=== PATIENT | female | born 1955 | race Caucasian/White ===

== ENCOUNTER 2020-12-27 18:14 | Observation (INO) | payer MEDICARE ==
[2020-12-27] MEDS ORDERED: Acetaminophen 325 MG TAB PO PRN (21:32)
[2020-12-27] MEDS ORDERED: Senokot S 8.6-50 MG TAB PO PRN (21:32)
[2020-12-27] MEDS ORDERED: Guaifenesin DM 100-10/5 ML UDCUP PO PRN (21:32)
[2020-12-27] MEDS ORDERED: HYDROcodone/Acetaminophen 5/325 mg Tablet PO PRN (21:32)
[2020-12-27] MEDS ORDERED: Ondansetron PF 4 MG/2 ML Vial IVP PRN (21:32)
[2020-12-27] MEDS ORDERED: HumaLOG 300 UNITS/3 ML VIAL SC PRN (21:32)
[2020-12-27] MEDS ORDERED: Zolpidem Tartrate 5 MG TAB PO PRN (21:32)
[2020-12-27] MEDS ORDERED: Dextrose 50% Abboject 50 ML SYRINGE SLOW IVP PRN (21:32)
[2020-12-27] MEDS ORDERED: Calcium Carbonate 500 MG ChewTAB PO PRN (21:32)
[2020-12-27] MEDS ORDERED: Dextrose 5% in Water 1,000 ML IV PRN (21:32)
[2020-12-27] MEDS ORDERED: Nitroglycerin 0.4 MG TAB (25 Tab Bottle) SL PRN (21:36)
[2020-12-28 00:20] VITALS: BMI 36.6
[2020-12-28] MEDS: Metoprolol Tartrate 25 MG TAB PO SCH ×2 (00:49→14:40)
[2020-12-28 04:46] LABS: #Basophils 0.1 10x3/uL (0.0-0.2); #Eosinphils 0.3 10x3/uL (0.0-0.5); #Monocytes 0.6 10x3/uL (0.0-1.1); #Neutrophils 3.2 10x3/uL (1.5-8.4); %Basophils 0.7 % (0.0-2.0); %Eosinophils 4.1 % (0.0-6.0); %Lymphocytes 42.1 % (18.0-47.0); %Monocytes 8.4 % (0.0-10.0); %Neutrophils 44.6 % (40.0-75.0); Hemoglobin 14.4 g/dL (12.0-15.5); Mean Corpuscular HGB CONC 33.6 g/dL (32.0-36.0); Mean Corpuscular Hemoglobin 30.1 pg (27.0-33.0); Mean Corpuscular Volume 89.7 fl (81.6-98.3); Mean Platelet Volume 9.2 fl (7.4-10.4); Platelet Count 271 10x3/uL (150-450); RBC Distribution Width 12.4 % (11.5-14.5); Red Blood Cell (RBC) Count 4.78 10x6/uL (3.90-5.03); White Blood Cell (WBC) Count 7.1 10x3/uL (3.5-10.5)
[2020-12-28 04:56] LABS: Lactic Acid 0.9 mmol/L (0.5-2.2)
[2020-12-28 05:00] LABS: Anion Gap 13 mmol/L (10-20); BUN (Urea Nitrogen) 11 mg/dL (9.8-20.1); CK (CPK) 41 U/L (29-168); Calc. Creatinine Clearance 130 mL/min (70-130); Carbon Dioxide 22 mmol/L (23-31); Cardiac Risk 5.1 (Less than 4.5); Chloride 108 mmol/L (98-107); Cholesterol 173 mg/dl (< 200 Desired); Glucose 135 mg/dL (80-115); HDL Cholesterol 34 mg/dL (>60 Neg Risk); LDL Cholesterol, Calculated 125 mg/dL; Sodium 139 mmol/L (136-145); Triglycerides 71 mg/dL (Less than 150)
[2020-12-28] MEDS ORDERED: Lactated Ringer's 1,000 ML IV SCH ×2 (05:15→06:00)
[2020-12-28] MEDS ORDERED: Enoxaparin Sodium 40 MG/0.4 ML SYRINGE SC SCH (09:00)
[2020-12-28] MEDS ORDERED: Aspirin 81 mg Enteric Coated Tablet PO SCH (09:00)
[2020-12-28] MEDS ORDERED: Lisinopril 2.5 MG TAB PO SCH (09:00)
[2020-12-28] MEDS ORDERED: Citalopram 20 MG TAB PO SCH (09:00)
[2020-12-28 11:43] LABS: Hemoglobin A1c 8.2 % (4.0-6.0)
[2020-12-28 15:08] LABS: Bilirubin Neg (Negative); Blood, Urine Negative (Negative); Clarity Clear (Clear); Glucose, Urine (Dipstick) Normal (Negative); Ketone, Urine Negative (Negative); Leukocyte Negative (Negative); Nitrite Negative (Negative); Protein, Urine (Dipstick) Negative (Neg-Trace); Specific Gravity, Urine 1.015 (1.002-1.036); Urobilinogen Normal mg/dL (Less than 2)
[2020-12-28 15:24] LABS: Bacteria/HPF None Seen HPF (None Seen); RBC/HPF 0-3 HPF (0-3); Squamous Epithelial 0-3 HPF (0-3); WBC/HPF None Seen HPF (0-3)
[2020-12-28 16:13] VITALS: BP 114/68; TEMP 97.8
[2020-12-28 18:47] LABS: SARS-CoV-2 PCR by NAA Not Detected (NotDetected)
[2020-12-28] MEDS ORDERED: Atorvastatin Calcium 20 MG TAB PO SCH (21:00)
== END 2020-12-28 18:20 | disposition home or self-care (01) ==
LOC: CSHERS 18:14 → CSHTELE 21:32 → UNDOADMOB 23:58
PROVIDERS: ADMIT Student in an Organized Health Care Education/Training Program; ATTEND Physician Assistant Medical
DX: R07.9 Chest pain, unspecified (principal); R03.0 Elevated blood-pressure reading, without diagnosis of hypertension; E78.5 Hyperlipidemia, unspecified; E11.22 Type 2 diabetes mellitus with diabetic chronic kidney disease; N18.9 Chronic kidney disease, unspecified; F41.8 Other specified anxiety disorders; Z79.899 Other long term (current) drug therapy; Z90.49 Acquired absence of other specified parts of digestive tract; Z87.891 Personal history of nicotine dependence; E11.10 Type 2 diabetes mellitus with ketoacidosis without coma; E86.0 Dehydration; Z20.822 Contact with and (suspected) exposure to COVID-19
CPT/HCPCS: 80048; 80061; 81001; 82550; 82962; 83036; 83605; 84443; 84484 ×2; 85025; 93005 ×2; 93306; 96372; 96374; G0378 ×2; U0003; U0005; 36415; 36416; 93010; J1650; J2405; J7120

== ENCOUNTER 2021-11-15 13:52 | Outpatient (CLI) | payer OTHER | END 2021-11-15 13:53 | disposition home or self-care (01) | LOC: CSHMAMMO 13:52 | PROVIDERS: ATTEND Family Medicine | DX: Z12.31 Encounter for screening mammogram for malignant neoplasm of breast (principal); Z13.820 Encounter for screening for osteoporosis; Z78.0 Asymptomatic menopausal state; N63.10 Unspecified lump in the right breast, unspecified quadrant | CPT/HCPCS: 77063; 77067; 77080 ==